=== PATIENT | male | born 1955 | race Caucasian/White ===

== ENCOUNTER → 2020-03-11 08:39 | Outpatient (REF) | payer MEDICARE, SELFPAY | LOC: ANHLAB 08:39 | PROVIDERS: PCP Internal Medicine; Visit Provider Nurse Practitioner | DX: C44.311 Basal cell carcinoma of skin of nose (principal) | CPT/HCPCS: 88305 ==

== ENCOUNTER → 2020-03-31 07:23 | Outpatient (REF) | payer MEDICARE, SELFPAY | LOC: ANHLAB 07:23 | PROVIDERS: PCP Internal Medicine; Visit Provider Nurse Practitioner | DX: C44.311 Basal cell carcinoma of skin of nose (principal) | CPT/HCPCS: 88305; 88331 ==

== ENCOUNTER → 2020-09-16 08:24 | Outpatient (REF) | payer MEDICARE, SELFPAY | LOC: ANHLAB 08:24 | PROVIDERS: PCP Internal Medicine; Visit Provider Nurse Practitioner | DX: C44.329 Squamous cell carcinoma of skin of other parts of face (principal) | CPT/HCPCS: 88305 ==

== ENCOUNTER 2020-10-09 09:38 | Outpatient (CLI) | payer MEDICARE, SELFPAY ==
--- NOTE | ~2020-10-09 | MR_ITS ---
EXAMINATION: MR cervical spine wo con EXAM DATE: 10/09/2020 10:41 INDICATION: Neck, left arm pain. TECHNIQUE: Multi-sequential, multiplanar MR images of the cervical spine were obtained without contra st. Axial T2, axial T2 MERGE sequence. Sagittal T1, T2, T2 fat saturation images also obtained. Th ere is no prior study for comparison. FINDINGS: There is moderate disc disease C5-6 and 6-7, mild at the other levels. The spinal cord sig nal intensity and intrinsic morphology is normal. Cervicomedullary junction is normal in appearance. There are no suspicious marrow signal abnormalities. Paraspinal soft tissue is unremarkable. Level by level evaluation: C2-C3: Disc does not extend beyond the endplate margin. Uncovertebral joint arthropathy: None. Facet joint arthropathy: Moderate left, mild right. Neural foraminal stenosis: No stenosis. Central canal stenosis: No stenosis. C3-C4: There is a minimal diffuse disc bulge. Uncovertebral joint arthropathy: Mild bilateral. Facet joint arthropathy: Mild to moderate bilateral. Neural foraminal stenosis: Moderate left, mild right. Central canal stenosis: No stenosis. C4-C5: There is a mild diffuse disc bulge. Uncovertebral joint arthropathy: Mild bilateral. Facet joint arthropathy: Mild bilateral. Neural foraminal stenosis: No stenosis. Central canal stenosis: Mild. C5-C6: There is a mild diffuse disc bulge. Uncovertebral joint arthropathy: Moderate to severe right, moderate left. Facet joint arthropathy: Mild to moderate bilateral. Neural foraminal stenosis: Moderate to severe right, mild left. Central canal stenosis: Mild. C6-C7: There is a mild diffuse disc bulge. Uncovertebral joint arthropathy: Moderate bilateral. Facet joint arthropathy: Mild bilateral. Neural foraminal stenosis: Moderate right, mild to moderate left. Central canal stenosis: Mild. C7-T1: Disc does not extend beyond the endplate margin. Uncovertebral joint arthropathy: Mild to moderate left. Facet joint arthropathy: Mild bilateral. Neural foraminal stenosis: Moderate to severe left. Central canal stenosis: No stenosis. IMPRESSION: 1. Moderate to severe cervical spondylosis. Reviewed, dictated and finalized at location B. [employer]
--- NOTE | ~2020-10-09 | US_ITS ---
EXAMINATION: US carotid duplex BI DATE: 10/09/2020 11:03 INDICATION: Calcification of carotid artery. TECHNIQUE: Grayscale, color Doppler, and pulsed Doppler images of the cervical carotid arteries were obtained. The degree of vessel stenosis is placed in one of the following categories: normal, <50%, 5 0-69%, >=70% but less than near-occlusion, near-occlusion, or total occlusion. Note that percent sten osis relative to normal distal artery lumen diameter is indirectly measured from velocity measurement s as described by Chaparro, et al. Radiology 2003; 229:340-346. COMPARISON: None. FINDINGS: RIGHT: The right common carotid artery (CCA) peak systolic velocity (PSV) is 104 cm/s. The right internal ca rotid artery (ICA) PSV is 87 cm/s. The right ICA end-diastolic velocity (EDV) is 25 cm/s. The right I CA/CCA PSV ratio is 0.8. Grayscale and color Doppler images yield an estimate of <50% diameter reduct ion from plaque in the ICA. There is antegrade flow in the right vertebral artery. LEFT: The left CCA PSV is 112 cm/s. The left ICA PSV is 69 cm/s. The left ICA EDV is 23 cm/s. The left ICA/ CCA PSV ratio is 0.6. Grayscale and color Doppler images yield an estimate of <50% diameter reduction from plaque in the ICA. There is antegrade flow in the left vertebral artery. IMPRESSION: 1. <50% stenosis in the right internal carotid artery. 2. <50% stenosis in the left internal carotid artery. Reviewed, dictated and finalized at location A. DDER
== END 2020-10-09 09:39 | disposition home or self-care (01) ==
LOC: ANHIMG 09:45
PROVIDERS: PCP Internal Medicine; Visit Provider Internal Medicine
DX: M79.602 Pain in left arm (principal); I25.10 Atherosclerotic heart disease of native coronary artery without angina pectoris; I25.84 Coronary atherosclerosis due to calcified coronary lesion; I65.23 Occlusion and stenosis of bilateral carotid arteries; M47.892 Other spondylosis, cervical region
CPT/HCPCS: 72141; 93880

== ENCOUNTER 2020-10-22 08:00 | Outpatient (RCR) | payer MEDICARE, SELFPAY ==
--- NOTE | 2020-09-09 09:44 | PTOPEVAL ---
INITIAL PHYSICAL THERAPY EVALUATION and PLAN OF CARE Thank you for referring Juan Myers to [facility].? Juan is scheduled to be seen for physical therapy? 2x/week for 4 weeks. Please review, sign, date and return this plan of care BHARATI. I agree with and certify that the following plan of care is medically necessary. Referring Physician Date Admitting Provider: Attending Provider: Scot Montgomery, MD Referring Provider: *PT Outpatient Evaluation Start: 09/09/20 08:06 Freq: Status: Active Protocol: Document 09/09/20 08:00 DALIA (Rec: 09/09/20 09:16 DALIA [id number]) Therapy Assessment Status Assessment Status Assessment Status Evaluation Outpatient Past Medical History Past Medical History Source of Past Medical History Patient Neurological History Hx Neurological Disorders No Significant History Cardiovascular History Hx Atrial Fibrillation Yes: post R RTC surgery Hx Coronary Stent Yes Hx Hypertension Yes Hx Myocardial Infarction Yes: October 2018 Respiratory History Hx Respiratory Disorders No Significant History Gastrointestinal History Hx Diverticulitis Yes Hx Gastroesophageal Reflux Disease Yes Genitourinary History Hx Genitourinary Disorders No Significant History Musculoskeletal History Hx Arthritis Yes Hx Joint Replacement Yes: R MARTHA Hx Orthopedic Surgery Yes: R RTC repair 03/2018 Endocrine History Hx Endocrine Disorders No Significant History Evaluation Information Problem Diagnosis L arm pain, L trapezius muscle spasm Subjective Information Fell Tuesday - Query Text:As Reported By Patient/ raking leaves - mild incline - Family slid down hit ditch - fell down on L side. Didn't feel much then, next morning okay. Later on that day - began to feel increase pain. Saw MD on Tuesday09/03/20 - X ray on 09/04/20. Increase pain - starts L side of neck - runs into scapula, lateral humeral region, lateral forearm, wrist - volar aspect to MCP region. Sleeping - better since Flexeril. Flexeril better than pain pills. Mornings - better today since Flexeril. Increase pain while shaving with L UE hanging. Avoiding using L UE since injury. Diagnostic Tests X-Rays For Thi
--- NOTE | 2020-10-08 14:21 | PTOPEVAL ---
PHYSICAL THERAPY RE-EVALUATION and UPDATED PLAN OF CARE Thank you for referring Juan Myers to [facility].? Juan has made increased gains in PT towards goals set and recommending continuation of PT 2x/week for 4 weeks. Please review, sign, date and return this plan of care BHARATI. I agree with and certify that the following plan of care is medically necessary. Referring Physician Date Admitting Provider: Attending Provider: Scot Montgomery, MD Referring Provider: *PT Outpatient Evaluation Start: 09/09/20 08:06 Freq: Status: Active Protocol: Document 10/08/20 08:02 DALIA (Rec: 10/08/20 09:00 DALIA [id number]) Therapy Assessment Status Assessment Status Assessment Status Re-evaluation Evaluation Information Problem Subjective Information This morning more shoulder and Query Text:As Reported By Patient/ elbow joint discomfort than Family numbness into L hand/fingers. Shaving was better this morning as well. Some tingling and end of finger numbess still present L 4th and 5th fingers. Not having the L lateral elbow pain anymore. Sleeping continues to go better. Pain Assessment Timing of Pain Assessment Timing of Pain Assessment Assessment Pain Scale Pain Scale Used Numeric (1 - 10) Self Report Pain Assessment Left Arm(s) Reported Pain Level 1 Pain Description Numbness,Tingling Radicular Pain Location tips of L 4th and 5th fingers Lowest Pain Intensity 1 Greatest Pain Intensity 2 Other Pain Aggravating Factors neck/head position - especially extension Pain Score Pain Score 1: Self Report Interventions Used Interventions Used By Clinicians Manual Therapy Techniques Cervical and Lumbar ROM Cervical ROM Cervical Flexion (0-60) 40 Query Text:Active in Degrees Cervical Extension (0-70) 35 Query Text:Active in Degrees Cervical Lateral Flexion Right (0-50) 30 Query Text:Active in Degrees Cervical Lateral Flexion Left (0-50) 30 Query Text:Active in Degrees Cervical Rotation Right (0-90) 55 Query Text:Active in Degrees Cervical Rotation Left (0-90) 55 Query Text:Active in Degrees Cervical ROM Comments mild discomfort into L scapular region and slight increase in numbness into L 4th and 5th fingers with cervical extension PT Clinical Summary Clinical Summary Protocol: PTEVCODE PT Clinical Summary
--- NOTE | 2020-10-22 11:26 | PTOPEVAL ---
PHYSICAL THERAPY DISCHARGE SUMMARY Thank you for referring Juan Myers to [facility].? Juan was seen x 13 visits. 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 Thank you for this referral, it was a pleasure to work with Juan. I agree with Juan's discharge from PT. Referring Physician Date Admitting Provider: Attending Provider: Scot Montgomery, MD Referring Provider: *PT Outpatient Evaluation Start: 09/09/20 08:06 Freq: Status: Active Protocol: Document 10/22/20 08:00 DALIA (Rec: 10/22/20 09:02 DALIA [id number]) Therapy Assessment Status Assessment Status Assessment Status Discharge Evaluation Information Problem Subjective Information Juan reports just occasion Query Text:As Reported By Patient/ little bit of tingling in his Family L 4th and 5th fingers now. Able to shave without discomfort or radicular L UE symptoms. Mild L lateral elbow discomfort this morning. Sleeping fine. Feels 100% better. Pain Assessment Timing of Pain Assessment Timing of Pain Assessment Pre-Treatment Pain Scale Pain Scale Used Numeric (1 - 10) Self Report Pain Assessment Left Arm(s) Reported Pain Level 0 Lowest Pain Intensity 0 Greatest Pain Intensity 0 Pain Score Pain Score 0: Self Report Cervical and Lumbar ROM Cervical ROM Cervical Flexion (0-60) 55 Query Text:Active in Degrees Cervical Extension (0-70) 35 Query Text:Active in Degrees Cervical Lateral Flexion Right (0-50) 35 Query Text:Active in Degrees Cervical Lateral Flexion Left (0-50) 35 Query Text:Active in Degrees Cervical Rotation Right (0-90) 60 Query Text:Active in Degrees Cervical Rotation Left (0-90) 60 Query Text:Active in Degrees Cervical and Lumbar Muscle Testing Cervical Muscle Testing Deep Cervical Flexion 1 min 4 sec hold ability Palpation Assessment Palpation Palpation Fair P-A glides T2-C5 - no increase of L UE symptoms Symmetrical side gliding C6-5- 4 - no increase of L UE symptoms with L to R side gliding No increase in L scapular musculature. Mild tenderness L lateral elbow. PT Clinical Summary Clinical Summary Protocol: PTEVCODE PT Clinical Summary Neck Disabililty Index - 0% Ray has made increased gains in r
== END 2020-10-28 10:01 | disposition home or self-care (01) ==
LOC: ANHHIPT 08:00
PROVIDERS: PCP Internal Medicine; Visit Provider Internal Medicine
DX: M79.602 Pain in left arm (principal); M62.830 Muscle spasm of back
CPT/HCPCS: 97110; 97140; 97162

== ENCOUNTER → 2020-11-03 07:45 | Outpatient (REF) | payer MEDICARE, SELFPAY | LOC: ANHLAB 07:45 | PROVIDERS: PCP Internal Medicine; Visit Provider Nurse Practitioner | DX: C44.329 Squamous cell carcinoma of skin of other parts of face (principal) | CPT/HCPCS: 88305; 88331 ==

== ENCOUNTER 2021-01-20 09:32 | Outpatient (CLI) | payer MEDICARE, SELFPAY ==
--- NOTE | ~2021-01-20 | XR_ITS ---
XR hip RT min 3V w AP pelvis 01/20/2021 09:53 Indication: Right hip pain Procedure: 4 views right hip including AP pelvis Comparison: No prior studies for comparison. Findings: There is a right total hip arthroplasty with cerclage wire at the trochanteric level. Prost hesis well seated. No underlying fracture or traumatic malalignment. Pelvic rings are intact. 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 Sacral foramen are symmetric. Impression: 1: No acute bone or joint abnormality. Reviewed, dictated and finalized at location B. Impression: 1: No acute bone or joint abnormality.
== END 2021-01-20 09:33 | disposition home or self-care (01) ==
LOC: CHSIMG 09:35
PROVIDERS: PCP Internal Medicine; Visit Provider Orthopaedic Surgery
DX: M25.551 Pain in right hip (principal)
CPT/HCPCS: 73502

== ENCOUNTER 2022-12-09 12:27 | Outpatient (CLI) | payer MEDICARE, SELFPAY ==
--- NOTE | 2022-12-09 12:30 | ECG_ITS ---
Measurements Intervals [place] Rate: 57 P: 28 MA: 148 QRS: 51 QRSD: 104 T: 30 QT: 399 QTc: 389 Interpretive Statements SINUS BRADYCARDIA BASELINE ARTIFACT- I, AVR, AVL BORDERLINE ECG NO PREVIOUS ECG AVAILABLE FOR COMPARISON Electronically Signed On 12-09-2022 13:26:11 CDT by Gordo Mejia D.O.
[2022-12-09 13:15] LABS: Appearance Urine Clear (Clear); Bacteria Urine None Seen /hpf; Bilirubin Urine Negative (Negative); Blood Urine 2+ (Negative); Color Urine Yellow (Yellow); Glucose Urine UA Negative (Negative); Ketones Urine Negative (Negative); Leukocyte Esterase Ur Negative LEU/UL (Negative); Nitrate Urine Negative (Negative); Non Pathogenic Casts 0-2; Protein Urine Negative (Negative); RBC Urine 21-50 /hpf (0-2); Specific Grav Ur 1.014 (1.001-1.035); Squamous Epithelial Cell Urine None seen /hpf (Few); WBC Urine 0-5 /hpf; pH Urine 6.5 (5.0-9.0)
[2022-12-09 13:18] LABS: INR 1.2; Prothrombin Time 14.3 Seconds (11.1-14.7)
[2022-12-09 13:21] LABS: Partial Thromboplastin Time 26.1 SECONDS (22.3-36.8)
[2022-12-09 13:34] LABS: Add Urine Microscopic? YES
== END 2022-12-09 12:28 | disposition home or self-care (01) ==
LOC: ANHSURGERY 12:32
PROVIDERS: Visit Provider Urology
DX: I10 Essential (primary) hypertension (principal); Z01.818 Encounter for other preprocedural examination; N20.1 Calculus of ureter
CPT/HCPCS: 36415; 81001; 85610; 85730; 93005

== ENCOUNTER 2022-12-10 01:03 | Day surgery (SDC) | payer MEDICARE, SELFPAY ==
[2022-12-08 09:25] VITALS: BMI 35.6
--- NOTE | 2022-12-08 09:51 | PC.NURSE ---
Report to the Outpatient Waiting Room, entrance under the green pavilion located off [facility], at time _0600_ on date _12/10/22_. Planned Procedure Time: __0730__. Time changes happen often and if your time is changed the preop area will call you the afternoon before. - You and your visitor will be asked to self-screen and do not enter if you have any COVID symptoms. - Only one visitor is requested with a max of two and NO children visitors are allowed at this time. - The patient visitor may be requested to leave or wait in car when not with patient due to distancing restrictions. - A mask is optional within the hospital at this time. Patients may have clear liquids (water, carbonated beverages, clear teas, apple juice) until 3 hours prior to surgery (0430 AM) with a maximum of 20 ounces. - No food from midnight until time of surgery - Infants may have breast milk until 4 hours before surgery, infant formula 6 hours prior to surgery. - Children will be allowed to drink immediately following surgery. If applicable, please bring a bottle or sippy cup to assist with drinking. Juice, water, soda, and popsicles are readily available. For infants on formula, please bring formula the day of surgery. Pacifiers are allowed. Take the following medications with a SIP of water the morning of surgery: _NONE_ DO NOT STOP ANY OF YOUR OTHER PRESCRIPTION MEDICATIONS PRIOR TO SURGERY ?EXCEPT THE FOLLOWING Medications to discontinue per physician _ASPIRIN PER DR. COSTA'S INSTRUCTIONS_ Last dose taken _12/08/22_ Please no make-up, nail japanese, hairspray, perfume, deodorant, or body powder the day of surgery. No jewelry (including any body piercings) or valuables the day of surgery, leave them at home. Please take a shower or bath the night before, or the morning of, surgery with an antibacterial soap. Wear comfortable, loose fitting clothing. Children are encouraged to wear pajamas. - Jewelry must be removed prior to entering the operating room. Rings and piercings that are not removed may be cut off. - The hospital will not accept responsibility for valuables. - Please leave all valuables, including medications, at home the day of surgery. If you are going home after surgery, a licensed ambulance driver paramedic must drive you home. - NO public transportation without another adult if you receive anesthesia. - We recommend that an adult stay with you for 24 hours following discharge. - We also recommend that you do not drive, make important decision, drink alcoholic beverages, or take any drugs that were not prescribed by your health care provider for at least 24 hours after your discharge time. For Pediatric surgeries, we recommend two adults accompany the child home. Follow any additional instructions given to you from your surgeon. If you or anyone in your household have experienced Covid symptoms in the past week, please notify your surgeon or the nurse liaison at the phone number below for possible testing. Telephone instructions given to _PATIENT_and asked if any additional questions and then verbalized understanding. Patient advised to call surgeon office or pre surgery nurse liaison [phone] if any additional questions.
[2022-12-10] VITALS (10 sets, daily range): BP systolic 116–150; BP diastolic 56–73; PULSE 53–65; RESP 12–18; TEMP 36.3–37.1; O2SAT 93–98
--- NOTE | ~2022-12-10 | CT_ITS ---
Non-contrast CT scan of the Abdomen and Pelvis Clinical indication: Right ureteral stone Technique: 2.5 mm axial scans were obtained through the abdomen and pelvis without intravenous or or al contrast. Dose reduction technique was used on this scan by utilizing automated exposure control a nd iterative reconstruction technique. The dose-length product (DLP) was 862.08 mGy-cm. Findings: Images through the lung bases reveal no abnormalities. Small hiatal hernia noted. There is mild right hydroureteronephrosis. Probable 3 mm stone at the right UVJ versus within the uri nary bladder. No left ureteral or left renal stone. No left hydronephrosis. Left renal cyst noted. The liver, spleen, pancreas, and adrenals appear normal. Cholelithiasis noted. There is no aortic ane urysm. There are atherosclerotic calcifications of the aorta. There is no evidence of bowel obstruction. Images through the pelvis are degraded by streak artifact from right hip arthroplasty. There is no ev idence of ascites or lymphadenopathy. No pelvic mass evident. Impression: Mild right hydroureteronephrosis with probable 3 mm stone likely at the right UVJ versus within the u rinary bladder. Evaluation of the pelvis is very limited due to streak artifact from right hip arthro plasty. Cholelithiasis. Small hiatal hernia. Reviewed, dictated and finalized at [facility]. Impression: Mild right hydroureteronephrosis with probable 3 mm stone likely at the right U VJ versus within the urinary bladder. Evaluation of the pelvis is very limited due to streak artifact from right hip arthroplasty. Cholelithiasis. Small hiatal hernia.
--- NOTE | ~2022-12-10 | XR_ITS ---
Supine and upright views of the abdomen Clinical history: Lithotripsy COMPARISON: 10/19/2013 Findings: Bowel gas pattern is nonspecific. No evidence for obstruction or free air. Suspected small left renal stones noted. Bowel contents limits evaluation. Right hip arthroplasty in place. Impression: Suspected small left renal stones. Reviewed, dictated and finalized at [facility]. Impression: Suspected small left renal stones.
[2022-12-10] MEDS: LACTATED RINGERS 1,000 ML 30 ML IV CONT (06:50)
--- NOTE | 2022-12-10 07:28 | WPDANESEPPF ---
Anes - Initial Pre Proc Eval Procedure: Operation Date: 12/10/22 07:30 Proposed Procedures p Right Ureteral Extracorporeal Shock Wave Lithotripsy - Ángel Limon MD Date/Time: 12/10/22 07:28 Surgeon: Ángel Limon MD Pre Op Diagnosis: right ureteral kidney stone Patient Data Age: 67 Gender: M Height: 1.88 m Weight: 124.9 kg Last Vital Signs Temp 98.8 F 12/10/22 06:32 Pulse 65 12/10/22 06:32 Resp 18 12/10/22 06:32 BP 150/69 H 12/10/22 06:32 Pulse Ox 98 12/10/22 06:32 O2 Del Method Room Air 12/10/22 06:32 Allergies Allergy/AdvReac Type Severity Reaction Status Date / Time Penicillins Allergy Unknown Hives Verified 12/10/22 06:25 Shrimp Allergy Severe NAUSEA/VOMI Uncoded 12/10/22 06:25 TING Home Medications Medication Instructions Recorded Confirmed Type aspirin 81 mg chewable tablet 81 mg PO DAILY 09/04/19 12/08/22 History cholecalciferol (vitamin D3) 25 2,000 unit PO DAILY 09/04/19 12/08/22 History mcg (1,000 unit) capsule finasteride 5 mg tablet 5 mg PO DAILY 09/04/19 12/08/22 History metoprolol succinate 50 mg 25 mg PO HS 09/04/19 12/08/22 History tablet,extended release 24 hr psyllium husk 0.52 gram capsule 1.56 gm PO DAILY 09/04/19 12/08/22 History (Daily Fiber) tamsulosin 0.4 mg capsule 0.4 mg PO DAILY 06/29/22 12/08/22 History amlodipine 5 mg-benazepril 20 mg 1 cap PO DAILY #90 caps 09/10/22 12/08/22 Rx capsule ascorbic acid (vitamin C) 500 mg 500 mg PO DAILY 12/08/22 12/08/22 History capsule,extended release (Vitamin C) atorvastatin 20 mg tablet 20 mg DAILY 12/08/22 12/08/22 History Patient hx anesthesia problems: post op nausea/vomiting Family hx anesthesia problems: none Results Review: All pre-operative results and documents have been reviewed as part of the pre-operative evaluation. 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 Not stated in paperwork Surgical History Surgical History (Updated 06/29/22 @ 08:24 by Cecelia Estrada CMA) H/O colonoscopy History of appendectomy History of back surgery History of hernia repair History of total right hip arthroplasty Hx of carpal tunnel repair Hx of rotator cuff surgery Family History Family History (Updated 06/29/22 @ 08:25 by Cecelia Estrada CMA) Father Cerebrovascular accident Mother Breast cancer Diabetes mellitus Hypertension Sibling Diabetes mellitus Hypertension Heart disease Other Arthritis Family history of malignant neoplasm Kidney disorder Pancreatic cancer Social History Social History (Updated 06/29/22 @ 08:25 by Cecelia Estrada CMA) Smoking packs per day: 1.5 Smoking cigarettes per day: 30.0 Years smoked: 19 Smoking pack-years: 28.50 Smoking status: Former smoker Tobacco type: cigarettes Second hand tobacco smoke exposure: No Smoking end date: 09/26/88 Alcohol intake: current Alcohol use details: MAYBE 2/MONTH Substance use: never Substance use type: does not use Living arrangements: with family Occupation/Education: retired Gender identity (if verbalized by the patient): Male Spiritual care concerns: No Agree to blood products: Yes Anes - Eval Final PreProcedure Day of Procedure 12/10/22 07:28 Patient weight: obese Heart: regular rate and rhythm Lungs: clear to auscultation Airway: Mallampati scale class III Neurological: alert and oriented Last oral intake: >/= 8 hours ASA classification: III Emergent: no Anesthetic plan: proceed Anesthesia type and monitoring: general LMA and standard monitoring Results Review: All pre-operative results and documents have bee
--- NOTE | 2022-12-10 07:28 | WPDHPUPDATE1 ---
History and Physical Update Update Date/Time: 12/10/22 07:28 History and Physical has been reviewed, including an updated exam of the patient. Imaging this morning shows right urteral stone in either in bladder or right at right UVJ. Will pivot to cystoscopy, right ureteroscopy with stone extraction (instead of ESWL). Risks, benefits, and alternatives have been discussed and questions answered. Patient agrees to proceed with procedure.
[2022-12-10] MEDS: ceFAZolin 3 GM/D5W 100 ML 100 ML IVPB (07:43)
--- NOTE | 2022-12-10 08:05 | SUR.OPER ---
x ray .1 per Syed Cadena ESWL TECH
--- NOTE | 2022-12-10 08:09 | W.PM.PROC2 ---
Procedure Note - Detailed Date of Procedure 12/10/22 Pre-op Diagnosis Right ureteral stone Post-op Diagnosis Same Procedure Performed Cystoscopy, right ureteroscopy with right ureteral stone extraction Surgeon Ángel Limon MD Anesthesia General Description of Procedure The patient was brought to the operative suite where he is prepped and draped in a routine sterile fashion while in the dorsal lithotomy position after the uneventful induction of a general LMA anesthetic. A 19F rigid cystoscope was placed in the bladder. There are no urethral strictures. His prostatic urethra measures, approximately, 2.5cm with small median lobe enlargement. The bladder mucosa was endoscopically normal without hyperemia or neoplasm. There was a single, orthotopic ureteral orifice bilaterally. A 0.035 glidewire was advanced into the right renal pelvis under fluoroscopy. The distal ureter was dilated with an 8F/10F ureteral dilator. Ureteroscopy was undertaken with a short, tapered, semi-rigid ureteroscope and the stone was extracted with ease using a 1.9F Escape disposable stone basket. Due to the ease of this manipulation I opted not to place a ureteral stent. The patient's bladder was emptied and was taken to the recovery room having tolerated this procedure well. Pathology Yes Complications No immediate complications Condition Stable Disposition PACU
--- NOTE | 2022-12-10 09:19 | SUR.PHASEII ---
0915 - ambulated to bathroom. Gait steady. voided large amt of bloody urine without difficulty.
[2022-12-10] MEDS: oxyCODONE HCL (*CRX) 5 MG TAB IR PO (09:50)
== END 2022-12-10 10:16 | disposition home or self-care (01) ==
PROVIDERS: Visit Provider Urology
PROC: (CPT 52352; principal; 2022-12-10 07:30)
DX: N20.1 Calculus of ureter (principal); Z79.82 Long term (current) use of aspirin; Z87.891 Personal history of nicotine dependence; E66.9 Obesity, unspecified; Z68.35 Body mass index [BMI] 35.0-35.9, adult
CPT/HCPCS: 52352; 74018; 74176; 82365; 88300; A9270; C1769; J0690; J1100; J2250; J2405; J2704; J3010; J7030; J7120

== ENCOUNTER 2023-06-01 15:00 | Outpatient (CLI) | payer MEDICARE, SELFPAY ==
--- NOTE | ~2023-06-01 | XR_ITS ---
Supine and upright views of the abdomen Clinical history: Renal stone COMPARISON: 12/10/2022 Findings: Bowel gas pattern is nonspecific. No evidence for obstruction or free air. Probable tiny le ft renal stones, similar to prior exam. Right hip arthroplasty in place. Impression: Probable tiny left renal stones, similar to prior exam. Reviewed, dictated and finalized at [facility]. Impression: Probable tiny left renal stones, similar to prior exam.
== END 2023-06-01 15:01 | disposition home or self-care (01) ==
LOC: ANHIMG 15:14
PROVIDERS: Visit Provider Urology
DX: N20.0 Calculus of kidney (principal)
CPT/HCPCS: 74018

== ENCOUNTER 2025-06-03 09:08 | Outpatient (CLI) | payer MEDICARE, SELFPAY ==
--- NOTE | ~2025-06-03 | XR_ITS ---
EXAMINATION: XR abdomen/kub 1V DATE: 06/03/2025 09:29 INDICATION: Calculus of kidney TECHNIQUE: A supine view of the abdomen on 2 radiographs was obtained. COMPARISON: KUB dated 06/01/[address] dated 12/10/2022 FINDINGS: Unchanged 3 mm linear calcification projecting over the left renal hilum response to a small atherosclerotic calcification on prior CT. Unchanged pattern of 3 small round phleboliths in the left hemipelvis. No evident urolithiasis. Normal bowel gas pattern. Mild lumbar dextrocurvature with moderate to severe spondylosis. There is also moderate right and mild left sacroiliac osteoarthritis and moderate left hip osteoarthritis. Partially visualized noncemented right total hip arthroplasty with intertrochanteric cerclage wire. IMPRESSION: 1. Unchanged 3 mm atherosclerotic calcification projecting over the left renal hilum. No evident urolithiasis. Reviewed, dictated and finalized at location A.
--- OUTSIDE RECORDS SUMMARY | 2025-06-03 09:20 | XMS_ITS | Encounter Summary ---
Author Organization [facility] Healthcare Address [address] [place] [address] Care Team Providers Care International Flight Attendant Name Role Phone Scot Montgomery MD Primary Care Provider [phone] Elsie Mercado NP Primary Care Provider [phone] Encounter Details Date Type Department Care Team (Late st Contact Info) Description 04/04/2018 Telephone [facility] [address] [place] [address] Yeseina Garcia RN Social History Tobacco Use Types Packs/Day Years Used Date Smoking Tobacco: Former Cigarettes 2 26 1 972 - 1997 Smokeless Tobacco: Never Alcohol Use Standard Drinks/Week Comments Yes 1 (1 standard drink = 0.6 oz pur e alcohol) Sex and Gender Information Value Date Recorded Sex Assigned at Not on file Legal Sex Male 3:00 PM CDT Gender Identity Not on file Sexual Orientation Not on file documented as of this encounter Plan of Treatment Not on file documented as of this encounter Visit Diagnoses Not on filedocumented in this encounter Care Teams International Flight Attendant Relationship Specialty Start Date End Date Scot Montgomery MD [address] [place] [id number] PCP - General Internal Medicine 03/15/18 09/26/24 Elsie Mercado NP [address] [place] [id number] PCP - General Nurse Practitioner 09/27/24 documented as of this encounter
--- OUTSIDE RECORDS SUMMARY | 2025-06-03 09:20 | XMS_ITS | Clinical Summary ---
Author Organization [facility] Address [address] [place] [address] Care Team Providers Care Financial Processing Clerk Name Role Phone Elsie Mercado [employer]ERMITE [employer]OM[employer] LOADER Primary Care Provider [phone] Allergies Active Allergy Reactions Criticality Noted Date Comments Penicillins Swelling,Rash Medium 03/21/2018 Shellfish Containing Products Nausea And Vomiting 11/11/2018 Shrimp Swelling,Rash Medium 03/21/2018 Medications finasteride (PROSCAR) 5 mg tablet 8 02/26/2018 Active metoprolol XL (TOPROL-XL) 50 mg 24 hr tablet 0 03/03/2018 Act addis amlodipine-anyi zepril (LOTREL 5-20) 5-20 mg per capsule 0 01/05/2018 Active vit D3-vit X-cznfomqpa-cgu s [id number] jabf-bvg-lj-mg tablet Take by mouth. Active polycarbophil (FIBERCON) 625 mg tablet Take 625 mg by mouth daily. Active naproxen (NAPROSYN) 500 mg tablet Take 500 mg by mouth 2 (two) times a day with meals. Active famotidine (PEPCID) 20 mg tablet Take 20 mg by mouth 2 (two) times a day. Active atorvastatin (LIPITOR) 20 mg tablet Take 1 tablet (20 mg total) by mouth daily 05/06/2020 Active cefdinir (OMNICEF) 300 mg capsule Take 300 mg by mouth 2 (two) times a day 07/23/[address] (VOLTAREN) 75 mg EC tablet Take 75 mg by mouth 05/27/2020 Active tamsulosin (FLOMAX) 0.4 mg extended release capsule Take 1 capsule (0.4 mg total) by mouth nightly 07/10/2020 Active nitroglycerin (NITROSTAT) 0.[address] 0.4 mg under the tongue every 5 (five) minutes as needed 05/06/2020 Active cholecalciferol (VITAMIN D-3) 2000 unit tablet Take 1 tablet (2,000 Units total) by mouth Active aspirin 81 mg chewable tablet Take 1 tablet (81 mg total) by mouth daily 04/18/2019 Active Active Problems Problem Noted Date Diagnosed Date Sensorineural hearing loss (SNHL) of both ears 0 10/09/2024 Bilateral impacted cerumen 10/09/2024 Otomycosis of both ears 07/29/2020 Postoperative atrial fibrillation 03/28/2018 Assessment & Plan (03/28/2018 7:28 AM CDT): - THIS CONSULT HAS NOT BEEN STAFFED WITH AN ATTENDING AND RECOMMENDATIONS ARE NOT FINAL. - Asymptomatic and hemodynamically stable, spontaneously cardioverted out after approximately 4 hours. Likely due to catecholamine excess/ stress of surgery. Electrolytes, thyroid testing wnl. - Given the short duration <24 hrs, and low risk for stroke (CHADS2-vasc would be 1), would favor not anticoagulating and outpatient follow-up with 30d event monitor to evaluate for further episodes of occult afib, as well as TTE. - Restart home metop succinate 50mg qd. Hypertension 03/28/2018 GERD (gastroesophageal reflux disease) 8 BPH (benign prostatic hyperplasia) 03/28/2018 Former smoker 03/28/2018 YARI on CPAP 03/28/2018 Class 1 obesity in adult 03/28/2018 Complete tear of right rotator cuff 03/21/2018 Overview (03/21/2018): Added automatically from request for surgery [id number] Acute postoperative pain of extremity Acute pain of right shoulder S/P right rotator cuff repair Surgical History Surgery Date Site/Laterality Comments CARPAL TUNNEL RELEASE Bilateral VENTRAL HERNIA REPAIR APPENDECTOMY BACK SURGERY TOTAL HIP ARTHROPLASTY Right NOSE SURGERY TOE SURGERY right big TONSILLECTOMY MULTIPLE TOOTH EXTRACTIONS full dentures CARDIAC STENT PLACEMENT BLEPHAROPLASTY ROTATOR CUFF REPAIR Right Medical History Medical History Date Comments HTN (hypertension) well controll ed with medication Kidney stone 3 years ago Acid reflux well controlled Osteoarthritis Skin cancer (melanoma) (HCC) ear , chest back BPH (benign prostatic hyperplasia) Sleep apnea with use of cont inuous positive airway pressure (CPAP) CPAP - 8 Heart disease Heart attack (HCC) Sinusitis Allergies HL (hearing loss) Family History Medical History Relation Name Comments Heart disease Father Cancer Mother Diabetes Mother Hypertension Mother Relation Name Status Comments Father Mother Social History Tobacco Use Types Packs/Day Years [...] on file Sexual Orientation Not on file Obstetrics History Last Filed Vital Signs Vital Sign Reading Time Taken Comments Blood Pressure 136/73 03/28/2018 12:19 PM CDT Pulse 87 03/28/2018 12:19 PM CDT Temperature 36.3 C (97.3 F) 08/26/2020 1:26 PM MECHANICAL PRODUCT ENGINEER Respiratory Rate 20 03/28/2018 12:19 PM CDT Oxygen Saturation 98% 03/28/2018 12:19 PM CDT Inhaled Oxygen Concentration - - Weight 125.6 kg (277 lb) 10/09/2024 1:31 PM MECHANICAL PRODUCT ENGINEER Height 188 cm (6' 2) 10/09/2024 1:31 PM MECHANICAL PRODUCT ENGINEER Body Mass Index 35.56 10/09/2024 1:31 PM MECHANICAL PRODUCT ENGINEER Plan of Treatment Health Maintenance Due Date Last Done Comments Colon Cancer Screening-Colonoscopy 1954 Depression Screening 1954 Fall Risk Assessment 1954 Hepatitis C Screening 1954 Hepatitis B Screening 1972 Zoster Vaccine (1 of 2) 2004 Well Visit 65+ 2019 Covid-19 Vaccine (4 - 2023-2 5 season) 2024 08/05/2021, 12/04/2020, 11/13/2020 Influenza Vaccine (#1) 2025 , 07/08/2023, 07/15/2022, Additional history exists DTaP/Tdap/Td Vaccine (2 - Td or Tdap) 12/24/2031 12/23/2021 Abdominal Aortic Aneurysm (A AA) Screen Completed 12/05/2022 Pneumococcal vaccine 65+ Completed 08/02/2024 Medical Devices Implanted Type Area Gasoline Service Attendant Device Identifier Shelf Expiration Date Model / Serial / Lot [employer] [id number] Corkscrew Fiberwire Tigerwire 5.5mm 14.7mm 2 Drive Mechanism Vent - [id number] Implanted:Qty: 1 on 03/27/2018 by Biju Soliz MD at [facility] [place] Right: Shoulder [employer] 09/25/2019 AR-1927BCF / / [id number] [employer] Ar-[id number] Corkscrew Fiberwire Tigerwire 5.5mm 14.7mm 2 Drive Mechanism Vent - [id number] Implanted:Qty: 1 on 03/27/2018 by Biju Soliz MD at [facility] Right: Shoulder [employer] 09/25/2019 AR-1927BCF / / [id number] [employer] Ar-[id number] Corkscrew Fiberwire Tigerwire 5.5mm 14.7mm 2 Drive Mechanism Vent - [id number] Implanted:Qty: 1 on 03/27/2018 by Biju Soliz MD at [facility] Right: Shoulder [employer] 10/26/2019 AR-1927BCF / / [id number] [employer] Ar-1927bcf Corkscrew Fiberwire Tigerwire 5.5mm 14.7mm 2 Drive Mechanism Vent - [id number] Implanted:Qty: 1 on 03/27/2018 by Biju Soliz MD at [facility] Right: Shoulder [employer] 09/25/2019 AR-1927BCF / / [id number] [employer] Ar-2324 Bcm Swivelock 4.75mm 24.5mm Self Punch Vent Shoulder [place] Suture - [id number] Implanted:Qty: 1 on 03/27/2018 by Biju Soliz MD at [facility] [place] Right: Shoulder [employer] 11/24/2019 AR-2324 BCM / / [id number] [employer] Ar-2324 Bcm Swivelock 4.75mm 24.5mm Self Punch Vent Shoulder [place] Suture - [id number] Implanted:Qty: 1 on 03/27/2018 by Biju Soliz MD at [facility] [place] Right: Shoulder [employer] 10/26/2019 AR-2324 BCM / / [id number] [employer] Ar-2267 Relations Director Large Eyelet Pectoralis Button Fixation Latex Free - [id number] Implanted:Qty: 1 on 03/27/2018 by Biju Soliz MD at [facility] [place] Right: Shoulder [employer] 10/26/2022 AR-2267 / / [id number] Insurance MEDICARE [facility] Advance Directives For more information, please contact: [phone] * Full Code (Latest Code Status on File) Date Activated Date Inactivated Comments 03/27/2018 9:50 PM 03/28/2018 5:47 PM Care Teams Financial Processing Clerk Relationship Specialty Start Date End Date Elsie Mercado NP PCP - General Nurse Practitioner 09/27/24
--- OUTSIDE RECORDS SUMMARY | 2025-06-03 09:20 | XMS_ITS | Encounter Summary ---
Author Organization [facility] Healthcare Address [address] [place] [address] Care Team Providers Care Support Team Assoc Name Role Phone Scot Montgomery MD Primary Care Provider [phone] Elsie Mercado NP Primary Care Provider [phone] Encounter Details Date Type Department Care Team (Late st Contact Info) Description 04/04/2018 Telephone [facility] [address] [place] [address] Yesenia Garcia RN Social History Tobacco Use Types [...] on filedocumented in this encounter Care Teams Support Team Assoc Relationship Specialty Start Date End Date Scot Montgomery MD [address] [place] [id number] PCP - General Internal Medicine 03/15/18 09/26/24 Elsie Mercado NP [address] [place] [id number] PCP - General Nurse Practitioner 09/27/24 documented as of this encounter
== END 2025-06-03 09:09 | disposition home or self-care (01) ==
PROVIDERS: Visit Provider Urology
DX: N20.0 Calculus of kidney (principal); I70.0 Atherosclerosis of aorta
CPT/HCPCS: 74018